=== PATIENT | female | born 1965 | race Caucasian/White ===

== ENCOUNTER 2019-05-13 10:19 | Outpatient (CLI) | payer BC, SELFPAY ==
--- NOTE | 2019-05-13 17:19 | DI.MAMMO_ITS ---
EXAM: MG MAMMO SCREENING CLINICAL HISTORY: SCREENING, Z12.31 TECHNIQUE: Mammograms were interpreted according to the usual protocol including computer analysis w Bottle CAD system, tomosynthesis and C-view imaging. COMPARISON: [id number] FINDINGS: The breasts are composed of heterogeneously dense tissue, which may obscure small masses, breast dens ity category C. There are no dominant masses or microcalcifications. There is no significant interva l change in comparison with the previous examinations. IMPRESSION: Category 1, negative mammogram. Yearly screening mammography is recommended. BI-RADS Cat 1 - Negative Breast Density - Category C - Heterogeneously dense
== END 2019-05-13 10:39 ==
PROVIDERS: PCP Nurse Practitioner Family; Visit Provider Specialist/Technologist Athletic Trainer
DX: Z12.31 Encounter for screening mammogram for malignant neoplasm of breast (principal)
CPT/HCPCS: 77063; 77067

== ENCOUNTER 2019-06-04 12:37 | Outpatient (REF) | payer BC, SELFPAY ==
--- NOTE | 2019-06-04 12:00 | PAPFT_PTH ---
PATIENT: Rosario Hua LOC: [facility] U#:[id number] AGE/SX: 53/F ROOM: RE06/04/[address]: Orlin Weaver : 1965 BED: DIS: 06/04/2019 SPEC #: [id number] RECD: 06/05/19 12:47 STATUS: MELITON RETonya #: [id number] SAMI: 06/04/19 12:[address]: Orlin Weaver DEPT: [facility] Cytology RECD BY: Ginger Reddy ENTERED: 06/05/19 12:47 SP TYPE: PAPFT ADRIANNA DR: Janeen Rizvi Tissues: 1 - CX/ENDOCX FOR PAP SMEARS Procedures: PAP THIN PREP/UVM Screening HPV DNA PROBE Comments: [id number]
[2019-06-04 20:42] LABS: Anion Gap 7.3 mmol/L (3-11); BUN 16 mg/dL (7-18); CO2 31.7 mmol/L (21.0-32.0); CREATININE 0.68 mg/dL (0.55-1.02); Calcium 9.3 mg/dL (8.5-10.1); Calculated LDL 163 mg/dL; Chloride 101 mmol/L (98-107); Cholesterol 282 mg/dL (<200); Glucose 85 mg/dL (74-106); HDL Cholesterol 108 mg/dL (40-60); Potassium 3.7 mmol/L (3.5-5.1); Sodium 140 mmol/L (136-145); Triglyceride 58 mg/dL (<150)
== END 2019-06-04 12:57 ==
LOC: NCHCN 12:37
PROVIDERS: PCP Nurse Practitioner Family; Visit Provider Specialist/Technologist Athletic Trainer
DX: Z00.00 Encounter for general adult medical examination without abnormal findings (principal); Z12.4 Encounter for screening for malignant neoplasm of cervix; Z01.419 Encounter for gynecological examination (general) (routine) without abnormal findings; E78.5 Hyperlipidemia, unspecified
CPT/HCPCS: 80048; 80061; 88142; 87624

== ENCOUNTER 2022-05-26 13:53 | Outpatient (REF) | payer OTHER, SELFPAY ==
[2022-05-26 14:28] LABS: Calculated LDL 147 mg/dL (<100); Cholesterol 250 mg/dL (<200); HDL Cholesterol 80 mg/dL (40-60); Triglyceride 117 mg/dL (<150)
== END 2022-05-26 13:54 | disposition home or self-care (01) ==
LOC: NCHCN 13:53
PROVIDERS: PCP Nurse Practitioner Family; Visit Provider Nurse Practitioner Family
DX: E78.5 Hyperlipidemia, unspecified (principal); J06.9 Acute upper respiratory infection, unspecified; Z80.0 Family history of malignant neoplasm of digestive organs; Z00.00 Encounter for general adult medical examination without abnormal findings
CPT/HCPCS: 80061

== ENCOUNTER → 2022-06-10 00:40 | Outpatient (CLI) | payer OTHER, SELFPAY ==
--- NOTE | 2022-06-10 | DI.MAMMO_ITS ---
Exam(s) MAMMO SCREENING EXAM: MAMMO SCREENING CLINICAL HISTORY: SCREENING, Z12.31. TECHNIQUE: Bilateral full field digital CC and MLO mammographic images were obtained with 3D tomosyn thesis and utilizing computer aided detection (CAD). COMPARISON: Prior mammograms were reviewed. FINDINGS: There has been no significant change in the appearance and distribution of the fibroglandular tissue. There are no new spiculated masses nor malignant appearing microcalcification groups. There is no significant architectural distortion nor skin thickening-retraction. IMPRESSION: No radiographic evidence of malignancy. BI-RADS Category 1 - Negative Breast Density - Category C - Heterogeneously dense Breast density Category C or D implies that the patient has dense breast tissue. Dense breast tissue can make it harder to find cancer on a mammogram. Dense breast tissue is also associated with an incr eased risk of breast cancer. This information about the result of the mammogram report was provided to the patient to raise their awareness. Use this report when you speak with the patient about their risks for breast cancer, which includes their family history. At that time, you may recommend additional screening tests (Ultrasoun d or MRI) as these tests may add significant information. A negative radiographic report should not delay biopsy if a dominant or clinically suspicious mass is present. Up to ten percent of cancers are not identified on mammography. A negative report may reinforce clinical impression. Adenosis and dense breasts may obscure an underlying neoplasm. False positive reports average 6 to 10%. Patient will receive a letter notifying them of these results.
== END ==
PROVIDERS: PCP Nurse Practitioner Family; Visit Provider Nurse Practitioner Family
DX: Z12.31 Encounter for screening mammogram for malignant neoplasm of breast (principal)
CPT/HCPCS: 77063; 77067

== ENCOUNTER 2022-07-18 16:07 | Outpatient (CLI) | payer OTHER, SELFPAY ==
--- NOTE | 2022-07-18 15:15 | DI.RAD_ITS ---
Exam(s) XR ANKLE LT COMPLETE XR FOOT LT LIMITED EXAM: XR ANKLE LT COMPLETE CLINICAL HISTORY: f/u left ankle fracture TECHNIQUE: 2D digital imaging was performed. Three views of the ankle. Single dorsoplantar view of the foot. COMPARISON: CR LEFT FOOT COMPLETE from 08/29/2016 DX Foot from 07/05/2022 DX Ankle 3 View LT from 07/05/2022 CR XR FOOT LT LIMITED from 07/18/2022 FINDINGS: BONES: Small bony fragment is again noted at the dorsal aspect of the talus distally. This was seen on the recent exam but not on the 2017 exam. No additional fractures noted in the ankle or foot.. N o bony destructive lesion is seen. Talar dome appears intact. JOINTS:The ankle mortise is normally aligned. There is spurring at the distal tibial fibular joint. SOFT TISSUE: Anterior soft tissue swelling. IMPRESSION: No change in small fracture fragment at the dorsal aspect of the talus. DATA REPOSITORY: RADIATION DOSE DELIVERED:
== END 2022-07-18 16:08 | disposition home or self-care (01) ==
LOC: DIORS 16:08
PROVIDERS: PCP Nurse Practitioner Family; Referring Provider Nurse Practitioner Family; Visit Provider Physician Assistant
DX: S82.892A Other fracture of left lower leg, initial encounter for closed fracture (principal); W10.9XXA Fall (on) (from) unspecified stairs and steps, initial encounter
CPT/HCPCS: 73610; 73620

== ENCOUNTER 2022-08-18 01:14 | Outpatient (CLI) | payer OTHER, SELFPAY ==
--- NOTE | 2022-08-18 07:00 | DI.MRI_ITS ---
Exam(s) MR LOWER EXTREMITY LT WO EXAM: MR LOWER EXTREMITY LT WO CLINICAL HISTORY: PAIN, INJURY,LISFRANCS SPRAIN,AVULSION FX LT TALUS,S93.349A,S92.152A. TECHNIQUE: Multiplanar multisequence MRI was performed. COMPARISON: CR LEFT FOOT COMPLETE from 08/29/2016 DX Foot from 07/05/2022 CR XR FOOT LT LIMITED from 07/18/2022 FINDINGS: BONES/JOINTS: No evidence of fracture. There is a well-circumscribed 0.7 cm T2 hyperintense lesions s een in the base of the 4th metatarsal. No joint space narrowing identified. There is mild subchondra l edema seen in the anterior calcaneus. There is normal marrow signal seen in the bases of the 1st a nd 2nd metatarsal bones and the medial and middle cuneiforms. There is a small amount of fluid in th e tibial talar joint. LIGAMENTS: The Lisfranc ligaments are intact. There is normal signal in the surrounding soft tissues . The medial lateral ankle ligaments are intact. MUSCULOTENDINOUS STRUCTURES: Visualized portion of the planar fascia is unremarkable. The Achilles t endon is grossly unremarkable. The visualized intrinsic muscles and tendons of the foot are unremark able. SOFT TISSUES: Unremarkable. OTHER FINDINGS: None. IMPRESSION: 1. Intact Lisfranc ligaments. Normal marrow signal in the 1st and 2nd metatarsal bones and the media l and middle cuneiforms. 2. No evidence of a tendon or ligament tear. 3. Well-circumscribed T2 hyperintense lesion in the base of the 4th metatarsal. It has a benign appe arance without soft tissue association. This may represent a benign cyst. DATA REPOSITORY:
== END 2022-08-18 01:34 ==
PROVIDERS: PCP Nurse Practitioner Family; Visit Provider Student in an Organized Health Care Education/Training Program
DX: S93.322A Subluxation of tarsometatarsal joint of left foot, initial encounter; S92.152A Displaced avulsion fracture (chip fracture) of left talus, initial encounter for closed fracture; R93.7 Abnormal findings on diagnostic imaging of other parts of musculoskeletal system
CPT/HCPCS: 73718

== ENCOUNTER 2022-11-18 12:14 | Day surgery (SDC) | payer OTHER, SELFPAY ==
--- NOTE | 2022-11-17 22:26 | PDOC.DSDIS_ITS ---
Date of service: 11/18/22 Time of Service: 14:52 Discharge Plan Disposition Patient Disposition: Home Condition: Good Discharge Details Reason For Visit: colon can screaning Attending Provider: Lilian Diego Primary Care Provider: Janeen Rizvi Home Meds and New Rx's Prescriptions: Discontinued Sutab 1.479-0.188- 0.225 gram tablet See Rx Instructions PO PER PKG DIR Qty: 24 0RF Rx Instructions: PO PER PKG DIR OsmoPrep 1.5 gram tablet 4 tab PO Q15M Qty: 4 0RF Rx Instructions: administer with 240 mL of clear fluid back up prescription if sutab not covered Discharge Instructions Additional Instructions: DSU Colonoscopy Post- Op Instructions Instructions for Everyone who is given Anesthesia: For your safety, please do the following for the next twenty-four (24) hours: *Do Not operate a motor vehicle (car, truck, motorcycle, etc.) *Do Not drink alcoholic beverages or use any recreational drugs for the first 24 hours or while taking pain medications. The medications in your body may have a reaction that can be dangerous. *Do Not make any important decisions or sign any important papers. Findings: x3 small polyps. My office will send you a letter in 2 to 3 weeks time with results of the pathology. Follow up: Repeat colonoscopy in 5 years 1. No lifting over 20 pounds or strenuous activity for the first 24 hours after your procedure. After 24 hours there are no restrictions on your activity but you may feel fatigued for a few days. 2. After you arrive home you may have a light meal and return to your normal diet as you can tolerate it without feeling sick to your stomach. 3. You may have a bloated, gaseous feeling in your belly (abdomen) after a colonoscopy. Passing gas and belching will help. Walking or lying down on your left side with your knees flexed may relieve the discomfort. Call the office at [phone] (Office) or [phone] (Hospital) right away if you notice any of the following: a.Vomiting of blood or ?coffee ground stools?. b.Rectal bleeding 1Tbsp, blood clots or continuous bleeding. c.Severe belly (abdominal) pain. d.A hard distended belly (abdomen) and an inability to pass gas. 4. Please don?t expect to have a normal BM (bowel movement) for 2-3 days after your procedure. 5. If there are questions regarding the findings of your procedure, please contact your doctor 6. If you are unable to contact your doctor with a problem, contact the hospital at [phone]. 7. Continue all your regular medications unless directed otherwise. I understand the above instructions and have no questions. Signature of Patient or Adult Escort Name of Responsible Adult Escort Signature of Nurse Date/Time Activity:: see above Diet:: see above Discharge Orders Discharge Orders: Discharge Order (Routine); Ordered 11/18/22 Ordered By: Lilian Diego DS: Diagnosis Discharge Diagnosis (1) Family history of colon cancer: Status: Acute Asessment and Plan: The patient is seen and examined after their colonoscopy.? The patient has been able to pass gas.? They are not having abdominal pain.? They have been able to tolerate liquids and a snack.? They do not have any nausea or vomiting.? They are not having any chest pain or shortness of breath.??? They are not having any rectal bleeding. Their vital signs have been stable-see nursing notes. We discussed findings during their colonoscopy, and any biopsies that were done/polyps that were removed. The patient will be sent a letter with any biopsy results, and when to repeat the colonoscopy.-see discharge instructions. Patient was given explicit instructions to follow-up regarding colonoscopy-refer to discharge instructions.? We reviewed resumption of medications. Patient verbalized understanding and discharged in stable and satisfactory condition- See nursing notes. (2) Adenomatous polyps: Status: Acute
[2022-11-18 12:41] VITALS: BP 105/73; PULSE 83; RESP 18; TEMP 36.5; O2SAT 99
[2022-11-18] MEDS: Lactated Ringers 1,000 ML 80 ML IV (12:55)
[2022-11-18] MEDS: Hyoscyamine 0.125 MG SL/ORAL/CHEW PO (13:16)
[2022-11-18] MEDS: Simethicone 80 MG CHEW CH (13:16)
--- NOTE | 2022-11-18 13:19 | W.ANESPRE ---
General Info Date of Service Date Performed: 11/18/22 Height: 5 ft 6.5 in Weight: 53.4 kg Body Mass Index (BMI): 18.7 Surgical Procedure: Operation Date: 11/18/22 12:35 Proposed Procedure Side Surgeon alma delia Diego, DO Meds Allergies and Home Medications Allergies Allergy/AdvReac Type Severity Reaction Status Date / Time No Known Allergies Allergy Verified 11/18/22 12:47 Home Medication Medication Instructions Recorded sod phos mono-sod phos dibasic 1.5 4 tab PO Q15M 5 doses #4 tabs 11/03/22 gram (1.102-0.398) tablet (OsmoPrep) sodium sul 1.479 gram-potas ch See Rx Instructions PO PER PKG DIR 11/03/22 0.188 gram-magnes sul 0.225 gram #24 tabs tablet (Sutab) Current Visit Medications: Current Medications Generic Name Dose Route Start Last Admin Trade Name Freq PRN Reason Stop Dose Admin Hyoscyamine Sulfate 0.125 mg 11/18/22 06:00 11/18/22 13:16 Hyoscyamine 0.125 Mg Sl/Oral/Chew PO 11/18/22 16:00 0.125 mg PREOP PAUL Administration Hyoscyamine Sulfate 0.125 mg 11/18/22 10:29 Hyoscyamine 0.125 Mg Sl/Oral/Chew SL 12/18/22 10:28 DIRECTED PRN Ringer's Solution 1,000 mls @ 80 mls/hr 11/18/22 06:00 11/18/22 12:55 IV 11/18/22 23:59 80 mls/hr INFUSION PAUL Administration IV Miscellaneous Supplies 1 each 11/18/22 06:00 Iv Access IV 11/18/22 23:59 DIRECTED PAUL Ondansetron HCl 4 mg 11/18/22 10:29 Ondansetron 4 Mg/2 Ml Vial IVP 12/18/22 10:28 Q4H PRN PRN Nausea / Vomiting Simethicone 80 mg 11/18/22 12:00 11/18/22 13:16 Simethicone 80 Mg Chew CH 11/18/22 16:00 80 mg PREOP PAUL Administration Sodium Chloride 0 ml 11/18/22 06:00 Normal Saline Flush 10 Ml Syr IV 11/18/22 23:59 PRN PRN Sodium Chloride 0 ml 11/18/22 06:00 Normal Saline 10 Ml Vial IJ 11/18/22 23:59 DIRECTED PRN Sterile Water 0 ml 11/18/22 06:00 Water,Injection,Sterile 10 Ml Vial IJ 11/18/22 23:59 DIRECTED PRN PFSH Active Problems Active Problems: Problem Status Onset Code Family history of colon cancer Z80.0 Avulsion fracture of left talus S92.152A Medical History Medical History Back pain Family history of colon cancer Hyperlipidemia Left foot pain Occipital pain Skin lesion Solar lentigo Stress incontinence Surgical History Surgical History History of colonoscopy (~12/16/13) Tobacco Smoking/Tobacco Use Status: Never Alcohol Alcohol Intake: current Alcohol intake frequency: holidays/special occasions only Substance Use Substance use: Never Substance use type: does not use Vital Signs and Lab Results Vital Signs Most Recent Vital Signs in EMR: Most Recent Vital Signs Temp Pulse Resp BP Pulse Ox 36.5 C 83 18 105/73 99 11/18/22 12:41 11/18/22 12:41 11/18/22 12:41 11/18/22 12:41 11/18/22 12:41 Lab Results Blood Type / Crossmatch: No Data to Display Complete Blood Count: No Data to Display Complete Metabolic Panel: No Data to Display Liver Function Panel: No Data to Display Coagulation Panel: No Data to Display Cardiac Panel: No Data to Display Arterial Blood Gas: No Data to Display Venous Blood Gas: No Data to Display Pancreas Panel: No Data to Display Thyroid Panel: No Data to Display Infectious Disease: No Data to Display Blood Cultures: No Data to Display Toxicology Panel: No Data to Display Anesthesia Assessment and Plan Anesthesia History Personal History: No History of Anesthesia Complications Family History: No Family History of Anesthesia Complications Exercise Tolerance Exercise Tolerance: Metabolic Equivalents>4 Cardiac & Pulmonary Exam Cardiac Exam: Normal S1/S2 Heart Sounds Pulmonary Exam: Clear Bilateral Breath Sounds Implantable Cardiac Device Does patient have a Pacemaker or an ICD?: No Airway Exam Known Difficult Airway: No Mallampati Class: 3 Mouth Opening: Narrow (< 3cm) Thyromental Distance: Greater than 3 cm Neck Range of Motion: Full ROM Neck Circumference: Normal Teeth Condition: Normal Dentition ASA Classification ASA Score: ASA 2 Emergency Case?: No NPO Status NPO Status: NPO Clears >2 hours, Solids >8 hours Anesthesia Plan Resuscitation Status: Full Code Anesthesia Technique: General Anesthesia Airway Planned: Natural Airway Monitors Used: Standard Monitors Preoperative Comments:: 57 yo female for colo. Sig PMHx: denies major.
[2022-11-18 13:21] VITALS: BMI 18.7
--- NOTE | 2022-11-18 14:16 | BOWEL_PTH ---
PATIENT: Rosario Hua LOC: [facility] U#:[id number] AGE/SX: 57/F ROOM: RE11/18/[address]: Lilian Diego : 1965 BED: DIS: 11/18/2022 SPEC #: [id number] RECD: 11/22/22 12:14 STATUS: MELITON Tonya #: [id number] SAMI: 11/18/22 14:[address]: Lilian Diego DEPT: Surgical Specimen RECD BY: Ginger Reddy ENTERED: 11/22/22 12:14 SP TYPE: Bowel OTHR DR: Janeen Rizvi Tissues: 1 - BIOPSY BOWEL 2 - BIOPSY BOWEL 3 - BIOPSY BOWEL Procedures: GROSS AND MICRO LEVEL 4 Comments: [id number]
[2022-11-18 14:40] VITALS: BP 106/64; PULSE 82; RESP 16; TEMP 36.3; O2SAT 98
--- NOTE | 2022-11-18 14:54 | W.ANESPOSTOP ---
Postoperative Evaluation Date, Time and Location Date Performed: 11/18/22 Time Performed: 14:54 Patient Location: Day Surgery Unit Vital Signs Most Recent Imported Vital Signs: Most Recent Vital Signs Temp Pulse Resp BP Pulse Ox 36.5 C 83 18 105/73 99 11/18/22 12:41 11/18/22 12:41 11/18/22 12:41 11/18/22 12:41 11/18/22 12:41 Pain Score Most Recent Pain Score: Most Recent Pain Score Pain Level 0 11/18/22 12:41 Assessment Mental Status: Awake (Alert & Oriented to Patient Baseline) Airway and Respiratory Function: Patent airway with normal (patient baseline) respiratory exam Cardiovascular Function: Hemodynamically Stable Hydration Status: Adequately Hydrated Nausea & Vomiting: No Nausea or Vomiting Pain: Pt. Denies Any Pain Peripheral Nerve Block: Patient did not receive a nerve block
[2022-11-18 15:23] VITALS: BP 102/60; PULSE 63; RESP 16; TEMP 36.3; O2SAT 98
--- NOTE | 2022-11-18 22:14 | W.COLOREPORT ---
Date of service: 11/18/22 Time of Service: 15:00 Colonoscopy Report Date of procedure: 11/18/22 Pre-op diagnosis general: fam hx of CRC Post-op diagnosis procedure note: other (polyps x3) Surgeon: Lilian Diego Anesthesia Type: General:No Airway Estimated blood loss (mL): 2 Pathology: other Complications: None Disposition: same day Prep: Other Retraction Time: 15 Procedure Description: After informed consent was obtained the patient was taken to the procedure room and placed in a left decubitous position. Monitors were applied and a time out was done. The patients name, date of , procedure, allergies to medications and metal in their body was reviewed. The patient was then sedated. Once sedated and comfortable a rectal exam was done. External exam was normal. Internal exam revealed a normal sphincter tone and no palpable masses. The scope was then introduced and retrofelexed. No internal hemorrhoids were identified. The scope was then advanced to the cecum w/out difficulty. The TI and appendiceal orifice were identified. The prep was BBPS 3 in all segments for a total of 9. . The scope was then slowly retracted over 15 minutes back into the rectum. There are no diverticula visualized today. She had 3 polyps that we removed today. All 3 were 0.5 cm flat polyps and removed with a cold biting forcep. They were at 80 cm, 70 cm, 20 cm. All specimen is retrieved and no bleeding is noted. The scope was removed and the patient was woken up and taken back to Same day surgery in stable condition. The patient tolerated the procedure well and there were no immediate complications. Follow up: The patient should follow up in 5 years unless they develop changes in bowel habits or other new gastrointestinal complaints.
== END 2022-11-18 15:35 | disposition home or self-care (01) ==
PROVIDERS: PCP Nurse Practitioner Family; Visit Provider Surgery
PROC: 0DJD8ZZ Inspection of Lower Intestinal Tract, Via Natural or Artificial Opening Endoscopic (ICD-10-PCS; CPT 45378; principal; 2022-11-18 12:30)
DX: Z12.11 Encounter for screening for malignant neoplasm of colon; Z80.0 Family history of malignant neoplasm of digestive organs; D12.4 Benign neoplasm of descending colon; K63.89 Other specified diseases of intestine
CPT/HCPCS: 45380; 88305; J3490

== ENCOUNTER → 2023-07-13 03:03 | Outpatient (CLI) | payer OTHER, SELFPAY ==
--- NOTE | 2023-07-13 | DI.MAMMO_ITS ---
Exam(s) MAMMO SCREENING EXAM: MAMMO SCREENING CLINICAL HISTORY: SCREENING MAMMO FOR BREAST CANCER Z12.31 TECHNIQUE: Mammograms were interpreted according to the usual protocol including computer analysis w [employer] Access CAD system, tomosynthesis and C-view imaging. COMPARISON: 2014 through 2021 FINDINGS: The breasts are composed of scattered fibroglandular densities, Breast Density category B. No suspicious masses or suspicious microcalcifications are seen. No skin thickening or abnormal axillary lymph nodes are seen. There has been no significant change from prior exams. IMPRESSION: BI-RADS Category 1, Negative mammogram Yearly screening mammography is recommended. Breast Density - Category B, scattered fibroglandular densities. A negative radiographic report should not delay biopsy if a dominant or clinically suspicious mass is present. Up to ten percent of cancers are not identified on mammography. A negative report may reinforce clinical impression. Adenosis and dense breasts may obscure an underlying neoplasm. False positive reports average 6 to 10%. Patient will receive a letter notifying them of these results.
== END ==
PROVIDERS: PCP Nurse Practitioner Family; Visit Provider Nurse Practitioner Family
DX: Z12.31 Encounter for screening mammogram for malignant neoplasm of breast (principal)
CPT/HCPCS: 77063; 77067

== ENCOUNTER 2024-07-01 15:10 | Outpatient (REF) | payer OTHER, SELFPAY ==
--- NOTE | 2024-07-01 12:15 | PAPFT_PTH ---
PATIENT: Rosario Hua LOC: [facility]#:[id number] AGE/SX: 58/F ROOM: RE07/01/[address]: Janeen Rizvi : 1965 BED: DIS: 07/01/2024 SPEC #: [id number] RECD: 07/01/24 18:04 STATUS: MELITON RETonya #: [id number] SAMI: 07/01/24 12:[address]: Janeen Rizvi DEPT: [facility] Cytology RECD BY: Ginger Reddy Tissues: 1 - CX/ENDOCX FOR PAP SMEARS Procedures: PAP THIN PREP/UVM Screening HPV DNA PROBE Comments: [id number] (HPV 16 & 18/45)
== END 2024-07-01 15:11 | disposition home or self-care (01) ==
LOC: NCHCN 15:10
PROVIDERS: PCP Nurse Practitioner Family; Visit Provider Nurse Practitioner Family
DX: Z11.51 Encounter for screening for human papillomavirus (HPV) (principal); Z01.419 Encounter for gynecological examination (general) (routine) without abnormal findings
CPT/HCPCS: 88142; 87624

== ENCOUNTER 2024-07-17 00:52 | Outpatient (CLI) | payer OTHER, SELFPAY ==
--- NOTE | 2024-07-17 09:08 | DI.MAMMO_ITS ---
Exam(s) MAMMO SCREENING EXAM: MAMMO SCREENING CLINICAL HISTORY: Z12.31 Screening. TECHNIQUE: Bilateral full field digital CC and MLO mammographic images were obtained with 3D tomosyn thesis and utilizing computer aided detection (CAD). COMPARISON: Prior mammograms were reviewed. FINDINGS: There has been no significant change in the appearance and distribution of the fibroglandular tissue. There are no new spiculated masses nor malignant appearing microcalcification groups. There is no significant architectural distortion nor skin thickening-retraction. IMPRESSION: No radiographic evidence of malignancy. BI-RADS Category 1 - Negative Breast Density - Category B - Scattered areas of fibroglandular density Breast density Category C or D implies that the patient has dense breast tissue. Dense breast tissue can make it harder to find cancer on a mammogram. Dense breast tissue is also associated with an incr eased risk of breast cancer. This information about the result of the mammogram report was provided to the patient to raise their awareness. Use this report when you speak with the patient about their risks for breast cancer, which includes their family history. At that time, you may recommend additional screening tests (Ultrasoun d or MRI) as these tests may add significant information. A negative radiographic report should not delay biopsy if a dominant or clinically suspicious mass is present. Up to ten percent of cancers are not identified on mammography. A negative report may reinforce clinical impression. Adenosis and dense breasts may obscure an underlying neoplasm. False positive reports average 6 to 10%. Patient will receive a letter notifying them of these results.
== END 2024-07-17 01:12 ==
LOC: DI 00:52
PROVIDERS: PCP Nurse Practitioner Family; Visit Provider Nurse Practitioner Family
DX: Z12.31 Encounter for screening mammogram for malignant neoplasm of breast (principal); R92.323 Mammographic fibroglandular density, bilateral breasts
CPT/HCPCS: 77063; 77067

== ENCOUNTER 2025-06-04 09:30 | Outpatient (CLI) | payer OTHER, SELFPAY ==
[2025-06-04 09:36] LABS: HCT 43.0 % (36.0-46.0); HGB 14.5 g/dL (11.2-15.7); MCH 30.9 pg (27.0-33.0); MCHC 33.7 % (32.0-36.0); MCV 92 fL (80-95); MPV 9.9 fL (8.0-11.0); Platelet Count 228 10^3/uL (130-400); RBC 4.70 10^6/uL (3.93-5.22); RDW 12.3 % (11.7-14.6); RDW-SD 41.1 fL; WBC 5.48 10^3/uL (4.4-10.8)
[2025-06-04 09:54] LABS: Hemoglobin A1C 5.4 % (<5.7)
[2025-06-04 10:02] LABS: ALT 14 U/L (10-49); AST 19 U/L (<34); Albumin 4.5 g/dL (3.2-5.0); Alkaline Phosphatase 80 U/L (46-116); Anion Gap 5.6 mmol/L (3-11); BUN 19 mg/dL (9-23); Bilirubin, Total 0.6 mg/dL (0.2-1.2); CO2 31.4 mmol/L (20.0-31.0); Calcium 9.3 mg/dL (8.3-10.6); Chloride 106 mmol/L (98-107); Cholesterol 262 mg/dL (<200); Glucose 86 mg/dL (74-106); HDL Cholesterol 109 mg/dL (>40); Potassium 4.5 mmol/L (3.5-5.1); Sodium 143 mmol/L (136-145); Total Protein 7.3 g/dL (5.7-8.2)
== END 2025-06-04 09:31 | disposition home or self-care (01) ==
LOC: LBO 09:30
PROVIDERS: PCP Nurse Practitioner Family; Visit Provider Nurse Practitioner Family
DX: Z00.00 Encounter for general adult medical examination without abnormal findings (principal); Z13.1 Encounter for screening for diabetes mellitus; E78.5 Hyperlipidemia, unspecified
CPT/HCPCS: 36415; 80053; 80061; 85027; 83036